=== PATIENT | female | born 2000 | race African-American/Black ===

== ENCOUNTER 2025-03-27 16:24 | Emergency (ER) | payer OTHER, SELFPAY ==
[2025-03-27 16:35] VITALS: BP 122/73; PULSE 84; RESP 16; TEMP 36.5; O2SAT 100
--- NOTE | 2025-03-27 16:45 | ED_ITS ---
HPI - Dental/Oral General Chief complaint: Dental/Oral Stated complaint: Lip Injury Time Seen by Provider: 03/27/25 16:35 Source: patient and RN notes reviewed Mode of arrival: ambulatory Limitations: no limitations History of Present Illness HPI Narrative: 24-year-old female presents Express Care complaining of right upper lip injury. Patient was walking throughout her house at home on her phone and did not adrienne lize there is a door in front of her and hit her face on the door. Patient denies any loss of consciousness, neck pain, back pain, any other injuries. Patient is complaining of a right upper lip injury with redness and swelling, and pain. Patient's tetanus is up-to-date. Patient said the injury occurred approximately 1 hours ago. Related Data Allergies Allergy/AdvReac Type Severity Reaction Status Date / Time No Known Allergies Allergy Verified 03/27/25 16:38 Review of Systems Review of Systems: CONSTITUTIONAL: Denies fever, chills, or sweats. EYES: Denies visual changes, redness, or discharge. ENT: Denies rhinorrhea, congestion, sore throat, or otalgia. CARDIOVASCULAR: Denies chest pain, palpitations, loss of consciousness, dizziness, lightheadedness, or edema. RESPIRATORY: Denies cough or dyspnea. GASTROINTESTINAL: Denies abdominal pain, nausea, vomiting, or diarrhea. GENITOURINARY: Denies dysuria or hematuria. SKIN: Denies rash or itching. Positive for lip injury. MUSCULOSKELETAL: Denies back pain, joint pain, or myalgia. NEUROLOGIC: Denies headache, numbness, or weakness. PSYCHIATRIC: Denies anxiety or depression. All other systems reviewed are negative, except as documented in HPI. PMFSH Comments At the time of my signature, I reviewed and agree with the nursing past medical, surgical, social, and family history. There is no relevant family history pertinent to the patient complaint. Exam Narrative: GENERAL: This is a well-nourished, well-developed adult, in no apparent distress. They are non ill-appearing, nontoxic appearing. HEAD: normocephalic, atraumatic. No raccoon eyes Lopez signs. EYES: Sclera clear/white. Conjunctiva normal. Vision is grossly intact. Extraocular movements intact. Pupils PERRLA. No subconjunctival hemorrhage. EARS: External ears normal, auditory canals clear and without drainage, TMs normal without perforation. Hearing grossly intact. NOSE: External nose normal with no obvious nasal discharge, nasal turbinates without redness, no rhinorrhea. No septal hematoma. THROAT: Mucous membranes moist, posterior pharynx clear, without erythema or swelling. Uvula midline. OROPHARYNX: No loose or missing teeth, no fractured teeth. Good oral hygiene. There is a laceration to the right upper lip measuring approximately 1 cm vertically involving the wet and dry vermilion. Lip approximates well. Lacerations does not involve the vermilion border. NECK: Neck supple, CARDIOVASCULAR: Regular rate and rhythm RESPIRATORY: Respiratory rate normal, respiratory effort nonlabored, no respiratory distress SKIN: warm, Dry, intact with no suspicious lesions or rash, good texture and turgor. NEURO: awake, alert, and oriented to person, place and time. There were no obvious focal neurologic abnormalities. EXTREMITIES: No joint tenderness, effusion, or edema noted. Course Course Emergency Course: Portions of this record may have been created with voice recognition software Level of Care: Express Care Visit Vital Signs Vital signs: Vital Signs Temperature 97.7 F 03/27/25 16:35 Pulse Rate 84 03/27/25 16:35 Respiratory Rate 16 03/27/25 16:35 Blood Pressure 122/73 03/27/25 16:35 Pulse Oximetry 100 03/27/25 16:35 Temperature 97.7 F 03/27/25 16:35 Pulse Rate 84 03/27/25 16:35 Respiratory Rate 16 03/27/25 16:35 Blood Pressure 122/73 03/27/25 16:35 Pulse Oximetry 100 03/27/25 16:35 Reviewed Procedures Laceration Laceration 1: Date: 03/27/25 Time: 16:48 Site: lip Side (If applicable): right (Upper) Description: linear Depth: simple, single layer Local Anesthetic: lidocaine 1% Amount of anesthesia used (mL): 2 Pre-repair: wound explored and irrigated ====== Skin Level ====== Skin layer closed with: other (Chromic gut) Size (cm): 5-0 Number of sutures: 2 Technique: simple, interrupted ====== Subcutaneous Layer ====== ====== Muscle Layer ====== ====== Tendon Layer ====== Dressing: Open to air, antibiotic ointment applied. MDM - Dental/Oral MDM Narrative Medical decision making narrative: Successful laceration repair of the lip to the dry vermilion area. 2 sutures were placed. Will prophylactically treat with antibiotics with Augmentin. Antibiotic ointment applied by nursing staff. [place] head CT injury score 0, no imaging indicated. No Evidence of significant facial trauma. Patient's tetanus is up-to-date. Discussed physical exam findings. Advised supportive measures and signs/symptoms to go to the ER. Pt is appropriate for outpt treatment and f/u. Differential Diagnosis Differential diagnosis: Likely fracture of tooth and other (Lip laceration,) Critical Care Time Critical Care Time Critical Care Time: No Discharge Plan Discharge Clinical Impression: Laceration of lip Qualifiers: Encounter type: initial encounter Qualified Code(s): S01.511A - Laceration without foreign body of lip, initial encounter Patient Disposition: Home Condition: Stable Instructions: Antibiotic Form, Laceration (DC) Additional Instructions: The sutures will dissolve on their own within 5 days. Please follow-up with your PCP return urgent care if sutures remain in place after 5 days. Eat soft foods for the next 2-3 days. Rinse the mouth out with water after each eating. Avoid spicy or salty foods into the wound is healed. Avoid the use of straws this may increase the risk of bleeding or bruising to the injury. Follow-up PCP in 3-5 days. Take Augmentin as directed. If you developed worsening redness, swelling, pain, drainage, fevers, any other concerns please go to the ER immediately. Patient Language: Cymro Prescriptions: New amoxicillin-pot clavulanate 875-125 mg tablet 1 tablet PO Q12H 7 Days Qty: 14 0RF Follow-up/Referrals: PHYSICIAN,[employer] DISORDERS COUNSELOR [Primary Care Provider] - Time of Disposition: 17:12
== END 2025-03-27 17:21 | disposition home or self-care (01) ==
DX: S01.511A Laceration without foreign body of lip, initial encounter (principal); W22.09XA Striking against other stationary object, initial encounter
CPT/HCPCS: 12011; 99203; G0463

== ENCOUNTER 2025-04-02 18:39 | Emergency (ER) | payer OTHER, SELFPAY ==
[2025-04-02 18:50] VITALS: BP 110/74; PULSE 74; RESP 18; TEMP 36.6; O2SAT 100
--- NOTE | 2025-04-02 18:50 | ED_ITS ---
HPI - Wound/Laceration General Chief Complaint: Wound/Laceration Stated Complaint: Follow up lip injury Source: patient Mode of arrival: ambulatory Limitations: no limitations History of Present Illness HPI narrative: 24 y/o female presented for wound recheck after sutures placed 6 days ago to right upper lip. Pt says she now has a 'bump' on her lip. Endorses the sutures have dissolved, and she denies concern for infection. Denies pain or drainage to the bump. Related Data Allergies Allergy/AdvReac Type Severity Reaction Status Date / Time No Known Allergies Allergy Verified 03/27/25 16:38 Review of Systems 2 Review of Systems: CONSTITUTIONAL: Denies body aches, fever, chills, or sweats. EYES: Denies visual changes, redness, or discharge. ENT: reports lip lesion Denies rhinorrhea, congestion CARDIOVASCULAR: Denies chest pain, palpitations, or edema. RESPIRATORY: Denies cough or dyspnea. GASTROINTESTINAL: Denies abdominal pain, nausea, vomiting, or diarrhea. SKIN: denies rash or wound MUSCULOSKELETAL: Denies back pain, joint pain, or myalgia. NEUROLOGIC: Denies headache, numbness, tingling, or weakness. PMFSH Comments At time of signature, I have reviewed and agree with nursing past medical, surgical, social and family history unless otherwise noted. Please see nursing chart for further information. There is no relevant family history pertinent to the presenting complaint Exam 2 Narrative: GENERAL: Well-appearing HEAD: Normocephalic, atraumatic. EYES: conjunctivae clear, and EOMI. ENT: right upper lip appears to have a visible 'skin tag' type lesion, pale pink, approx 2mm, nontender, no drainage. No apparent retained sutures noted to lip, no signs of infection. Mucous membranes moist. Oropharynx without edema, erythema or lesions. NECK: Supple. No lymphadenopathy CHEST: Clear to auscultation. HEART: Regular rate and rhythm. SKIN: Warm, dry. NEURO: Alert and oriented x3. HENMT: Mouth/tongue images: 1. location of skin mass Course Course Emergency Course: Patient is aware of diagnosis, understands and agrees to treatment plan. Anticipatory guidance given. Patient agrees to follow-up as directed and is aware of reasons to seek care at the emergency department. Portions of this record may have been created with voice recognition software Level of Care: Express Care Visit Vital Signs Vital signs: Reviewed MDM - Wound/Laceration MDM Narrative Medical decision making narrative: Discussed physical exam findings. No apparent retained sutures noted to lip, no signs of infection. lip appears to have a visible 'skin tag' type lesion, nontender, no drainage. Advised fu with plastics for management, vu. Advised supportive measures and signs/symptoms to go to the ER. Pt is appropriate for outpt treatment and f/u. Differential Diagnosis Differential diagnosis: Likely laceration, abrasion, avulsion of skin and other Discharge Plan Discharge Clinical Impression: Lip mass Patient Disposition: Home Condition: Stable Instructions: Antibiotic Form, Laceration (ED) Additional Instructions: The laceration to the upper lip is healing, no signs of infection Recommend following up with a plastic surgeon if you would like the skin lesion evaluated Follow up with your primary care provider as needed in 1 week Go to the ER for worsening symptoms or concerns Patient Language: Croatian Prescriptions: No Action amoxicillin-pot clavulanate 875-125 mg tablet 1 tablet PO Q12H 7 Days Qty: 14 0RF Follow-up/Referrals: Flower Mena MD [Physician] - (lip lesion after sutures) PHYSICIAN,[employer] [Primary Care Provider] - Time of Disposition: 18:59
== END 2025-04-02 19:01 | disposition home or self-care (01) ==
PROVIDERS: Emergency Provider Nurse Practitioner Family
DX: K13.0 Diseases of lips (principal)
CPT/HCPCS: 99212; G0463